=== PATIENT | female | born 1955 | race Caucasian/White ===

== ENCOUNTER 2016-11-18 11:51 | Inpatient (IN) | payer OTHER, MEDICAID ==
[~2016-11-18] VITALS: Ht 170.2 cm; Wt 103.2 kg
[2016-11-18] VITALS (9 sets, daily range): BP systolic 134–168; BP diastolic 80–106; PULSE 100–121; RESP 12–24; O2SAT 95–97
[~2016-11-18 11:51] MED LIST: ACYC400T2 PO; ALBU8.5H4 IH; AMLO5TAB2 PO; ASPI-973 PO; CLIN30GE2 TP; CLON1TAB PO; CLOP75TA3 PO; CYCL10TA9 PO; ERGO500029 PO; FLUT250D2 IH; GABA400C PO; LORA10TA73 PO; MAGN400T4 PO; MONT10TA20 PO; MULT-56 PO; NIAC-9 PO; O2; ONDA8TAB7 PO; OXYC30TA80 PO; PANT40TA2 PO; POLY17PO6 PO
--- NOTE | 2016-11-18 12:01 | ED.REPORT ---
HPI-Chest Pain 40 and Over Date of Service Nov 18, 2016 ED Provider: The patient is a 61 year old female with history of a previous stroke, coronary artery disease, asthma, and chronic pain, who presents to the emergency department complaining of left-sided chest pain that began this morning. The patient reports that she vomited 5 days ago and she thinks she aspirated. She has since experienced shortness of breath, cough and fever (101.5). She is unsure if her current symptoms are similar to when she previously had a heart attack. Nursing Notes Stated Complaint: SOB/CHEST PAIN Nursing Notes Reviewed: Yes Allergies: Coded Allergies: amitriptyline (Verified Allergy, Severe, seizure, 11/18/16) NSAIDS (Non-Steroidal Anti-Inflamma (Verified Allergy, Intermediate, RASH- TOLERATES INDOMETHACIN, 11/18/16) TAPE (Verified Allergy, Mild, rash, 11/18/16) Penicillins (Verified Allergy, Unknown, 11/18/16) Jokcnis-Zwa-Bpe Reductase Inhibitor (Verified Allergy, Unknown, 11/18/16) LEG CRAMPS, FLU LIKE SYMPTOM Sulfa (Sulfonamide Antibiotics) (Verified Allergy, Unknown, 11/18/16) celecoxib (Verified Allergy, Unknown, 11/18/16) codeine (Verified Allergy, Unknown, 02/13/15) Cramping and vomiting. duloxetine (Verified Allergy, Unknown, 11/18/16) erythromycin base (Verified Allergy, Unknown, 11/18/16) fenofibrate (Verified Allergy, Unknown, 11/18/16) fentanyl (Verified Allergy, Unknown, 11/18/16) iodine (Verified Allergy, Unknown, 11/18/16) lactose (Verified Allergy, Unknown, 11/18/16) morphine (Verified Allergy, Unknown, 11/18/16) Nauseous pregabalin (Verified Allergy, Unknown, 11/18/16) topiramate (Verified Allergy, Unknown, 11/18/16) Scheduled Acyclovir (Acyclovir) 400 Mg Tablet 400 MG PO TID Allopurinol (Allopurinol) 300 Mg Tablet 300 MG PO DAILY Amlodipine (Amlodipine) 5 Mg Tablet 2.5 MG PO DAILY Aspirin (Aspirin) 81 Mg Tablet.dr 81 MG PO DAILY Beclomethasone Dipropionate (Qvar) 8.7 Gm Aer.w.adap 2 PUFF INHALATION BID Bumetanide (Bumetanide) 1 Mg Tablet 1 MG PO BID Cholecalciferol (Vitamin D3) (Vitamin D3) 50,000 Unit Capsule 50,000 UNIT PO WEEKLY Clonazepam (Klonopin) 1 Mg Tablet 1 MG PO BID Clopidogrel Bisulfate (Plavix) 75 Mg Tablet 75 MG PO AM Cyclobenzaprine (Cyclobenzaprine) 10 Mg Tablet 20 MG PO HS Cyclobenzaprine (Cyclobenzaprine) 10 Mg Tablet 10 MG PO QAM Fluticasone Propionate (Fluticasone Propionate Nasal) 16 Gm Nelson.susp 2 SPRAY NS BID Gabapentin (Neurontin) 400 Mg Capsule 800 TAB PO AM Gabapentin (Neurontin) 400 Mg Capsule 1,600 TAB PO HS Loratadine (Claritin) 10 Mg Capsule 10 MG PO QAM Magnesium Oxide (Magnesium Oxide) 400 Mg Tablet 400 MG PO BID Montelukast (Singulair) 10 Mg Tablet 10 MG PO HS Multivitamin (Multivitamins) 1 Each Capsule 1 EACH PO DAILY Pantoprazole DR (Protonix) 40 Mg Tablet.dr 40 MG PO BID Potassium Chloride ER (Klor-Con M20) 20 Meq Tablet 20 MEQ PO BID Sucralfate (Sucralfate) 1 Gm Tablet 1 GM PO QID Scheduled PRN Albuterol HFA (Proair HFA) 8.5 Gm Hfa.aer.ad 2 PUFFS INHALATION Q4H PRN PRN For Shortness of Breath Nabumetone (Nabumetone) 500 Mg Tablet 500 MG PO BID PRN PRN For Pain Nitroglycerin SL (Nitrostat) 0.4 Mg Tab.subl 0.4 MG SL Q5MIN PRN PRN For Chest Pain Ondansetron (Zofran) 8 Mg Tablet 8 MG PO TID PRN PRN For Nausea Polyethylene Glycol 3350 (Miralax) 17 Gm Powd.pack 17 GM PO DAILY PRN PRN For Constipation oxyCODONE (oxyCODONE) 30 Mg Tablet 1-2 TAB PO Q4H PRN PRN For Pain General Time Seen by MD: 12:00 Chief Complaint Chest pain Hx Obtained From: Patient Arrived By: Wheelchair Sudden in Onset?: Yes Onset Occurred: 1 - 4 hours ago Symptom Duration: Since onset Location: : Chest left Quality: Painful Severity: Current: Moderate Severity: Maximum: Severe Recent Healthcare: No recent hospitalization Similar Sx Previous: No Past Medical History Past Medical History Notes: PCP: Dr. Espinal Past Medical History Chronic pain from arthritis with chronic opiate use, oxycodone 30 mg 240 per month Hx of C. Diff Reports: Asthma, Coronary artery disease, Stroke Past Surgical History Laparotomy for endometrioma, left knee arthroscopy, hiatal hernia surgery, neck surgery X4, thoracic outlet, patent foramen ovale intraluminal closure Reports: Appendectomy, Hysterectomy Reports: Tubal ligation Family History Reports: Coronary artery disease Reports: Cancer Smoking History Former Smoker Social History Alcohol Use: Denies alcohol use Drug Use: THC Other Social History: Local resident Ambulatory Status Independent Review of Systems Constitutional: Reports: Fever Respiratory: Reports: Non-productive cough, Shortness of breath Cardiovascular: Reports: Chest pain GI: Reports: Nausea, Vomiting Complete sys rev & neg: except as marked. Physical Exam Initial Vital Signs Vital Signs (First) Date Time Temp Pulse Resp B/P Pulse Ox O2 Delivery O2 Flow Rate FiO2 11/18/16 12:23 36.7 121 16 148/93 96 Room Air 11/18/16 13:39 3 Initial VS: Reviewed Head / Eyes: Atraumatic, Normocephalic, PERRL ENT: Mucous membranes moist, Conjunctiva normal, No scleral icterus Neck: Supple, Non-tender, Full range of motion Lymphatic: No lymphadenopathy Extremities: Vascular intact, Neuro intact, No swelling, No tenderness Skin: Warm, Dry, No cyanosis Neurologic: Alert, Oriented, Nonfocal Psychiatric: Mood/affect normal, Behavior normal, Normal thought content General/Constitutional: Awake, Alert Distress / Hydration: Positive: Distress moderate Appearance / Presentation: Positive: In pain Respiratory / Chest: Atraumatic, Breath sounds NL, Breath sounds = bilat, No respiratory distress, No rales, No rhonchi, No wheezing, No stridor, No chest tenderness Cardiovascular: Regular rhythm, Heart sounds NL, No rubs Heart Rate / Rhythm: Positive: Tachycardia Abdomen: Atraumatic, Soft, Non-tender, McBurney's non-tender, No guarding, No rebound, BS normoactive, No distention, No hernia, No palpable mass Interpretation & Diagnostics Lab Results Interpretation Result Diagram: 11/18/16 1159 11/18/16 1159 Test 11/18/16 11:59 White Blood Count 18.6th/mm3 (3.8-10.1) Red Blood Count 4.38mil/mm3 (3.90-5.20) Hemoglobin 13.8g/dL (12.0-15.6) Hematocrit 42.3% (35.0-46.0) Mean Corpuscular Volume 96.6fL (81-100) Mean Corpuscular Hemoglobin 31.5pg (27.0-35.0) Mean Corpuscular Hemoglobin Concent 32.6% (32.0-37.0) Red Cell Distribution Width 13.7% (12.3-15.4) Platelet Count 301bil/L (150-400) Neutrophils (%) (Auto) 93.6% (40-74) Lymphocytes (%) (Auto) 4.8% (14-46) Monocytes (%) (Auto) 1.2% (4-12) Eosinophils (%) (Auto) 0% (0-5) Basophils (%) (Auto) 0.1% (0-3) Prothrombin Time 11.2sec (8.1-12.5) Prothromb Time International Ratio 1.05ratio Activated Partial Thromboplast Time 27.5sec (22.8-33.0) D-Dimer 1.43mg/L FEU (<0.50) Sodium Level 139mEq/L (134-144) Potassium Level 3.5mEq/L (3.5-5.2) Chloride Level 92mEq/L (97-108) Carbon Dioxide Level 24mmol/L (18-29) Blood Urea Nitrogen 15mg/dL (8-27) Creatinine 0.95mg/dL (0.57-1.00) Estimat Glomerular Filtration Rate 86mL/min (>59) Glucose Level 215mg/dL (60-99) Lactic Acid Level 5.1mmol/L (0.4-2.0) Calcium Level 10.0mg/dL (8.5-10.1) Phosphorus Level 1.7mg/dL (2.5-4.9) Magnesium Level 1.9mg/dL (1.6-2.6) Total Bilirubin 0.7mg/dL (0.0-1.2) Aspartate Amino Transf (AST/SGOT) 29U/L (0-50) Alanine Aminotransferase (ALT/SGPT) 19U/L (0-32) Alkaline Phosphatase 123U/L (25-165) Troponin T 0.010ug/L (0.0-0.011) Total Protein 7.9g/dL (6.4-8.4) Albumin 4.3g/dL (3.4-5.0) Procalcitonin 3.73ng/mL (0.00-0.08) ECG Interpretation ECG Interpretation: Sinus tachycardia with a rate of 122 RBBB Similar to previous EKG taken on 02/2017 Time: 12:04 Interpreted by: ED physician X-Ray Chest Interpretation Chest Xray Interpretation: IMPRESSION: Bilateral reticular-nodular infiltrates suggest atypical pneumonia or pulmonary edema. Dictated by: Lexa Turcios M.D. on 11/18/2016 at 12:31 Interpretation / Wet Read by: Interpret - Radiologist CT Chest Interpretation IMPRESSION: 1. No evidence of pulmonary embolism. 2. Patchy right pulmonary air space disease/groundglass opacity is most suggestive of pneumonia. Aspiration or atypical edema may also have this appearance. 3. Lingular nodular structure probably is related to scarring and is located at the location where scarring/atelectais was noted on the prior study. However, on the current study this structure has a more nodular appearance. Subsequently, [address] of the chest is recommended. 4. Mild prominence of the esophageal wall may be related to chronic reflux esophagitis. Please correlate clinically. There is a questionable small hiatal hernia. Dictated by: Marcus Morfin M.D. on 11/18/2016 at 14:13 Study type: CT pulm angiogram Interpretation / Wet Read by: Interpret - Radiologist Re-Eval/Medical Decision Med Decision/Clinical Course Severe sepsis without hypotension due to aspiration pneumonia. Patient will be admitted. Source of Hx: Old records Time of Eval: 13:19 Re-Evaluation/Progress Note: Rechecked the patient. Discussed x-ray results. She was last admitted to the hospital about 2 years ago. Time of Eval: 14:09 Re-Evaluation/Progress Note: The patient believes she will be able to lay flat for the CT. Time of Eval: 14:15 Re-Evaluation/Progress Note: The pt is aware of plan for admission. 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: Will see patient, Agrees with eval, Agrees with plan, Accepts admit Counseled Regarding: Diagnosis, Lab results, Need for admission Discharge & Departure Primary Impression: Pneumonia Pneumonia type: aspiration pneumonia Aspiration pneumonia type: unspecified Laterality: bilateral Lung location: lower lobe of lung Qualified Code: J69.0 - Pneumonitis due to inhalation of food and vomit Additional Impression: Sepsis Sepsis type: sepsis due to unspecified organism Qualified Code: A41.9 - Sepsis, unspecified organism Disposition: ADMITTED TO HOSPITAL Discharge Condition All VS Reviewed: Yes Condition: Stable Referrals: Bolivar Quiñonez (PCP) Scribe Attestation Portions of this note were transcribed by Ramya Dang. I, Dr. Lott personally performed the history, physical exam and medical decision-making; I reviewed and confirmed the accuracy of the information in the transcribed note. Signed by: Uriel Cheatham, 11/18/2016 at 1532. copies to: Bolivar Quiñonez Timothy S DO Nov 18, 2016 12:01 Ramya Dang Nov 18, 2016 12:06
[2016-11-18] MEDS ORDERED: 0.9% Sodium Chloride 1,000 ML IV ONE ×2 (12:05→13:20)
[2016-11-18 12:28] LABS: BASOPHILS % (AUTO) 0.1 % (0-3); EOSINOPHILS % (AUTO) 0 % (0-5); MONOCYTES % (AUTO) 1.2 % (4-12); Mean Corpuscular Hemoglobin 31.5 pg (27.0-35.0); Mean Corpuscular Volume 96.6 fL (81-100); NEUTROPHILS % (AUTO) 93.6 % (40-74); Platelet Count 301 bil/L (150-400)
--- NOTE | 2016-11-18 12:34 | DRSVH ---
PROCEDURE: X-RAY CHEST ONE VIEW, PORTABLE ([id number]) INDICATIONS: CHEST PAIN TECHNIQUE: One view of the chest was acquired. COMPARISON: [facility], CR, XR CHEST 2VW, 09/01/2016, 14:39. [facility], CR , XR CHEST 1VW (PORTABLE), 02/17/2016, 19:51. FINDINGS: Surgical changes and devices: Surgical clips projecting to the right apex. Lungs and pleura: There are bilateral reticular-nodular infiltrates. No pleural effusions or pneumot horax. Mediastinum: Mediastinal contours appear normal. Heart size is normal. Bones and chest wall: No suspicious bony lesions. Overlying soft tissues appear unremarkable. IMPRESSION: Bilateral reticular-nodular infiltrates suggest atypical pneumonia or pulmonary edema. Dictated by: Lexa Turcios M.D. on 11/18/2016 at 12:31 Approved by: Lexa Turcios M.D. on 11/18/2016 at 12:32
[2016-11-18] MEDS: Ondansetron 2 mg/mL 2 mL Inj IVPUSH PRN ×2 (12:49→13:17)
[2016-11-18] MEDS: HYDROmorphone 0.5 mg/0.5 mL iSecure Syringe IVPUSH PRN ×4 (12:49→17:10)
[2016-11-18] MEDS ORDERED: predniSONE 10 mg Tablet PO ONE (12:55)
[2016-11-18] MEDS ORDERED: predniSONE 20 mg Tablet PO ONE (12:55)
[2016-11-18] MEDS ORDERED: diphenhydrAMINE 25 mg Capsule PO ONE (12:55)
[2016-11-18 12:59] LABS: TROPONIN T 0.01 ug/L (0.0-0.011)
[2016-11-18 13:11] LABS: Magnesium 1.9 mg/dL (1.6-2.6)
[2016-11-18 13:15] LABS: INR 1.05 ratio
[2016-11-18] MEDS ORDERED: 0.9% Sodium Chloride 500 ML IV ONE (13:20)
[2016-11-18] MEDS ORDERED: Doxycycline Inj 100 MG in Dextrose 5% Minibag Plus 100 ML IV ONE (13:40)
[2016-11-18] MEDS ORDERED: cefTRIAXone Inj 2,000 MG in Dextrose 5% Minibag Plus 50 ML IV ONE (13:40)
[2016-11-18] MEDS ORDERED: Clindamycin Inj 600 MG in IV Premix 1 EACH IV ONE (13:40)
[2016-11-18] MEDS ORDERED: 0.9% Sodium Chloride 1,000 ML IV SCH ×2 (14:19→14:30)
[2016-11-18] MEDS ORDERED: Ondansetron 2 mg/mL 2 mL Inj IVPUSH PRN (14:20)
[2016-11-18] MEDS ORDERED: ALLO300T2 PO (14:33)
[2016-11-18] MEDS ORDERED: ZOF8 PO (14:33)
[2016-11-18] MEDS ORDERED: POLY17PO6 PO (14:33)
[2016-11-18] MEDS ORDERED: CYCL10TA9 PO (14:33)
[2016-11-18] MEDS ORDERED: ALBU8.5H2 INHALATION (14:35)
[2016-11-18] MEDS ORDERED: MULT1CAP33 PO (14:35)
[2016-11-18] MEDS ORDERED: CHOL500050 PO (14:35)
[2016-11-18] MEDS ORDERED: LORA10CA PO (14:35)
[2016-11-18] MEDS ORDERED: NABU500T PO (14:41)
[2016-11-18] MEDS ORDERED: BUME1TAB4 PO (14:41)
[2016-11-18] MEDS ORDERED: SUCR1TAB PO (14:41)
[2016-11-18] MEDS ORDERED: BECL8.7A6 INHALATION (14:41)
[2016-11-18] MEDS ORDERED: NITR0.4T SL (14:41)
[2016-11-18] MEDS ORDERED: POTA20TA7 PO (14:41)
[2016-11-18] MEDS ORDERED: FLUT16SP NS (14:41)
[2016-11-18 14:51] LABS: Phosphorus 1.7 mg/dL (2.5-4.9)
[2016-11-18] MEDS ORDERED: Polyethylene Glycol (PEG) 17 Gm Powder PO PRN (15:05)
[2016-11-18] MEDS ORDERED: Potassium Phos (mMol) Inj 15 MMOL in Dextrose 5% 250 ML IV ONE (15:10)
--- NOTE | 2016-11-18 15:21 | DRSVH ---
PROCEDURE: CT ANGIO CHEST PULMONARY EMBOLISM ([id number]) INDICATIONS: dyspnea, tachycardia TECHNIQUE: After the administration of intravenous contrast, 2 mm thick sections acquired from the pulmonary api niyah to the posterior costophrenic angles. 3-dimensional maximum intensity projection (MIP) coronal a nd sagittal reformats were then acquired through the thorax. For radiation dose reduction, the follo wing was used: automated exposure control, adjustment of mA and/or kV according to patient size. COMPARISON: [facility], CT, CHEST ANGIO-PE, 01/24/2014, 20:00. FINDINGS: Image quality: Diagnostic. Pulmonary arteries: Pulmonary arteries are normal in size, and demonstrate no intraluminal filling d efects to suggest central pulmonary embolism. Lungs and pleura: There is patchy groundglass airspace disease identified within the right lung and t o a lesser degree within the left infrahilar region. There is no lobar consolidation, effusion, or p neumothorax. Mild respiratory motion artifact does limit evaluation of the lungs for subtle pulmonar y nodules. Within the lingula, there is an 11 mm nodular structure identified, which may represent a telectasis (image 94, series 4). On the previous examination, there was mild consolidation within th is region, which probably represents the same process and most likely represents scarring. There is no lung mass. Mediastinum: Heart size is normal, without pericardial effusion. No mediastinal or hilar adenopathy . Thoracic aorta is normal in caliber and enhancement. There is mild aortic atherosclerosis. Mild p rominence of the wall of the esophagus is present within the mediastinum. There is may be a small hi atal hernia. Postoperative changes within this region are evident at the gastroesophageal junction. Bones and chest wall: No suspicious bony lesions. Ribs and thoracic spine appear intact throughout. Moderate multilevel degenerative changes of the thoracic spine are present. There are also moderat e degenerative changes of the bilateral shoulders. Thyroid gland is not enlarged or adequately evalu ated. No axillary or supraclavicular adenopathy. Abdomen: Visualized upper abdominal solid organs appear normal in the early arterial phase of enhanc ement. IMPRESSION: 1. No evidence of pulmonary embolism. 2. Patchy right pulmonary air space disease/groundglass opacity is most suggestive of pneumonia. As piration or atypical edema may also have this appearance. 3. Lingular nodular structure probably is related to scarring and is located at the location where s carring/atelectais was noted on the prior study. However, on the current study this structure has a more nodular appearance. Subsequently, [address] of the chest is recommended. 4. Mild prominence of the esophageal wall may be related to chronic reflux esophagitis. Please abdullahi elate clinically. There is a questionable small hiatal hernia. Dictated by: Marcus Morfin M.D. on 11/18/2016 at 14:13 Approved by: Marcus Morfin M.D. on 11/18/2016 at 14:19
[2016-11-18] MEDS: 0.9% Sodium Chloride 1,000 ML IV SCH ×2 (16:51→23:10)
[2016-11-18] MEDS: Sodium Chloride LOK Flush 10 mL Syringe IVFLUSH SCH (16:51)
--- NOTE | 2016-11-18 16:54 | NUR ---
Admit Patient A&Ox3, talking animatedly on phone. States she is severely SOB, SPO2 in the high 90s on 3L, RR 16. C/o "pneumonia and kidney pain" 05/16. Hypertensive systolic BP 160-170s. paged. NO new orders at this time. Patient in bed, private caregiver at bedside. Call light within reach.
[2016-11-18] MEDS: Sucralfate 1,000 mg Tablet PO SCH ×2 (17:07→20:12)
[2016-11-18] MEDS: Pantoprazole 40 mg ER24 Tablet PO SCH (17:08)
[2016-11-18] MEDS ORDERED: Vancomycin Inj 1,000 MG in IV Premix 1 EACH IV ONE (18:00)
[2016-11-18] MEDS ORDERED: Vancomycin Inj 2,000 MG in 0.9% Sodium Chloride 500 ML IV ONE (18:30)
[2016-11-18] MEDS ORDERED: Albuterol 2.5 mg/3 mL Inhalation Solution NEB PRN (20:00)
[2016-11-18] MEDS: Acyclovir 400 mg Tablet PO SCH (20:12)
[2016-11-18] MEDS: Fluticasone 0.05% 15 Spray/2 Gm 16 Gm Nasal Spray NASAL SCH (20:13)
[2016-11-18] MEDS: Fluticasone 100 mCg Inhaler INHALATION SCH (20:14)
[2016-11-18] MEDS: Albuterol-Ipratropium 3 mL Inhalation Solution NEB SCH (21:05)
[2016-11-18] MEDS ORDERED: Potassium Chloride 20 mEq SR Tablet PO ONE (21:25)
[2016-11-18] MEDS: Aztreonam Inj 500 MG in Dextrose 5% 50 ML IV SCH (23:45)
[2016-11-19] VITALS (10 sets, daily range): BP systolic 103–152; BP diastolic 65–96; PULSE 85–111; RESP 16–20; O2SAT 93–99
[2016-11-19] MEDS: Sodium Chloride LOK Flush 10 mL Syringe IVFLUSH SCH ×3 (00:30→16:30)
--- NOTE | 2016-11-19 01:16 | PCM.HPMED ---
Subjective Date of Service Nov 18, 2016 Primary Provider: Admitting Physician: Bell Zaldivar MD Primary Care Physician: Alexandre Espinal MD Attending Physician: Bell Zaldivar MD History of Present Illness: cc: SOB HISTORY was OBTAINED FROM PATIENT / MEDITECH NOTES History of present illness 61-year-old female, w/ RA/acyclovir while immunosuppressed, w/ nocturnal home O2 2L/CPAP dependent, presented to ER due to malaise/SOB since Monday morning associated w/ "vomiting" phelgm - green, productive cough, sore throat, presents to ER with fevers 101.5. This morning, pleuritic pain started, located , lower ribs anterior and posterior bilateral. This past year multiple rounds of doxycycline and multiple negative sputum cx, last doxycyline course per her pulmnologist x 10 days less than 1 month ago. Prior quinolone have not helped. typically when she is off doxycycline, symptoms recur. She indicates that this is the 1st time being diagnosed w/ pneumonia. Her cloth presser had ordered outpt CTPE, not yet performed, possibly neighbors are sick contacts. In the ER. Heart rate 118 - 121, afebrile, 148/93, 3 L nasal cannula s/p Doxycyclin clindamycin Rocephin normal saline prednisone ( for iodine allergy) and Benadryl Dilaudid and Zofran, CT-PE negative. Review of Systems - none of the following - wt change/ RUEDA / lightheaded / dizziness / acid reflux / n/v/diarrhea / bleeding/bruising / leg swelling / change in voiding / yeast infections / rash ambulates PMHx Rheumatoid arthritis, immunosuppressant, acyclovir for herpetic breakout on immunosuppressant Chronic pain from arthritis with chronic opiate use, oxycodone 30 mg 240 per month Hx of C. Diff Asthma, Coronary artery disease, Stroke Laparotomy for endometrioma, left knee arthroscopy, hiatal hernia surgery, neck surgery X4, thoracic outlet, patent foramen ovale intraluminal closure Appendectomy, Hysterectomy Tubal ligation Family History Coronary artery disease Cancer Smoking History Former Smoker Drug Use: THC Coded Allergies: amitriptyline (Verified Allergy, Severe, seizure, 11/18/16) NSAIDS (Non-Steroidal Anti-Inflamma (Verified Allergy, Intermediate, RASH- TOLERATES INDOMETHACIN, 11/18/16) TAPE (Verified Allergy, Mild, rash, 11/18/16) Penicillins (Verified Allergy, Unknown, 11/18/16) Swzogbe-Ofx-Vui Reductase Inhibitor (Verified Allergy, Unknown, 11/18/16) LEG CRAMPS, FLU LIKE SYMPTOM Sulfa (Sulfonamide Antibiotics) (Verified Allergy, Unknown, 11/18/16) celecoxib (Verified Allergy, Unknown, 11/18/16) codeine (Verified Allergy, Unknown, 02/13/15) Cramping and vomiting. duloxetine (Verified Allergy, Unknown, 11/18/16) erythromycin base (Verified Allergy, Unknown, 11/18/16) fenofibrate (Verified Allergy, Unknown, 11/18/16) fentanyl (Verified Allergy, Unknown, 11/18/16) iodine (Verified Allergy, Unknown, 11/18/16) lactose (Verified Allergy, Unknown, 11/18/16) morphine (Verified Allergy, Unknown, 11/18/16) Nauseous pregabalin (Verified Allergy, Unknown, 11/18/16) topiramate (Verified Allergy, Unknown, 11/18/16) medications ([O2]) 2 L NA Night Acyclovir (Acyclovir) 400 Mg Tablet 400 MG PO TID Amlodipine (Amlodipine) 5 Mg Tablet 5 MG PO DAILY Aspirin (Aspirin) 81 Mg Tablet.dr 81 MG PO DAILY Clopidogrel Bisulfate (Plavix) 75 Mg Tablet 75 MG PO AM Ergocalciferol (Vitamin D2) (Vitamin D2) 50,000 Unit Capsule 50,000 UNIT PO QW takes on Monday Fluticasone Propionate (Flovent Diskus) 250 Mcg Disk.w.dev 1 PUFF IH BID Gabapentin (Neurontin) 400 Mg Capsule 2 TAB PO AM Gabapentin (Neurontin) 400 Mg Capsule 4 TAB PO PM Loratadine (Claritin) 10 Mg Tablet 10 MG PO AM Magnesium Oxide (Magnesium Oxide) 400 Mg Tablet 400 MG PO HS Montelukast (Singulair) 10 Mg Tablet 10 MG PO HS Multivitamin (Daily Vitamin) 1 Each Tablet 1 EACH PO DAILY Niacin ER (Niacin ER) 500 Mg Tab.er.24h 500 MG PO DAILY Ondansetron ODT (Zofran ODT) 8 Mg Tab.rapdis 8 MG PO PRN Pantoprazole DR (Protonix) 40 Mg Tablet.dr 40 MG PO BID Polyethylene Glycol 3350 (Miralax) 17 Gm Powd.pack 17 GM PO TID Scheduled PRN Albuterol HFA (Albuterol HFA) 8.5 Gm Hfa.aer.ad 2 PUFF IH Q4-6H PRN PRN For Wheezing Clindamycin Phosphate (Clindamycin Phosphate Gel) 30 Gm Gel..gram. 1 APPLIC TP BID PRN PRN rash Clonazepam (Klonopin) 1 Mg Tablet 2 MG PO HS PRN PRN For Anxiety Cyclobenzaprine (Cyclobenzaprine) 10 Mg Tablet 20 MG PO HS PRN PRN For Spasm oxyCODONE (oxyCODONE) 30 Mg Tablet 1-2 TAB PO Q6H PRN PRN For Pain Allergies Coded Allergies: amitriptyline (Verified Allergy, Severe, seizure, 11/18/16) NSAIDS (Non-Steroidal Anti-Inflamma (Verified Allergy, Intermediate, RASH- TOLERATES INDOMETHACIN, 11/18/16) TAPE (Verified Allergy, Mild, rash, 11/18/16) Penicillins (Verified Allergy, Unknown, 11/18/16) Dgrlbql-Zoi-Xjt Reductase Inhibitor (Verified Allergy, Unknown, 11/18/16) LEG CRAMPS, FLU LIKE SYMPTOM Sulfa (Sulfonamide Antibiotics) (Verified Allergy, Unknown, 11/18/16) celecoxib (Verified Allergy, Unknown, 11/18/16) codeine (Verified Allergy, Unknown, 02/13/15) Cramping and vomiting. duloxetine (Verified Allergy, Unknown, 11/18/16) erythromycin base (Verified Allergy, Unknown, 11/18/16) fenofibrate (Verified Allergy, Unknown, 11/18/16) fentanyl (Verified Allergy, Unknown, 11/18/16) iodine (Verified Allergy, Unknown, 11/18/16) lactose (Verified Allergy, Unknown, 11/18/16) morphine (Verified Allergy, Unknown, 11/18/16) Nauseous pregabalin (Verified Allergy, Unknown, 11/18/16) topiramate (Verified Allergy, Unknown, 11/18/16) PMH Social History Hx Alcohol Use: No Hx Substance Use: No Hx Tobacco Use: No Smoking Status: Former Smoker Exam Vital Signs Vital Sign - Last Date Time Temp Pulse Resp B/P Pulse Ox O2 Delivery O2 Flow Rate FiO2 11/18/16 13:39 118 12 141/80 96 Nasal Cannula 3 4/14/17 12:23 36.7 Lab and Diagnostics Labs Exam on admission 3L O2 NAD A and O x 3 mood affect WNL NC/AT no icterus no injected eyes EOMI PERRL /no pharyngeal lesions/ no oral lesions / hearing intact Supple neck equal chest rise / no accessory muscle use / speaks in full sentences / soft bilateral crackles, diminished left greater than right RRR S1 S2 / no mrg / 2+ radial pulses Soft nt nd + BS no hepatosplenomegaly No edema no cyanosis no ecchymosis of lower extremities No rash / no jaundice PHILIP symmetrical facies WBC 18.6 left shift lactic acid 5.1 Magnesium 1.9 LFT normal D-dimer 1.43 INR PTT normal pending sputum cx, strep pna Imaging PROCEDURE: X-RAY CHEST ONE VIEW, PORTABLE ([id number]) INDICATIONS: CHEST PAIN TECHNIQUE: One view of the chest was acquired. COMPARISON: [facility], CR, XR CHEST 2VW, 09/01/2016, 14:39. [facility], CR, XR CHEST 1VW (PORTABLE), 02/17/2016, 19:51. FINDINGS: Surgical changes and devices: Surgical clips projecting to the right apex. Lungs and pleura: There are bilateral reticular-nodular infiltrates. No pleural effusions or pneumothorax. Mediastinum: Mediastinal contours appear normal. Heart size is normal. Bones and chest wall: No suspicious bony lesions. Overlying soft tissues appear unremarkable. IMPRESSION: Bilateral reticular-nodular infiltrates suggest atypical pneumonia or pulmonary edema. Date of Service: 11/18/16 1223 PROCEDURE: CT ANGIO CHEST PULMONARY EMBOLISM ([id number]) INDICATIONS: dyspnea, tachycardia TECHNIQUE: After the administration of intravenous contrast, 2 mm thick sections acquired from the pulmonary apices to the posterior costophrenic angles. 3-dimensional maximum intensity projection (MIP) coronal and sagittal reformats were then acquired through the thorax. For radiation dose reduction, the following was used: automated exposure control, adjustment of mA and/or kV according to patient size. COMPARISON: [facility], CT, CHEST ANGIO-PE, 01/24/2014, 20:00. FINDINGS: Image quality: Diagnostic. Pulmonary arteries: Pulmonary arteries are normal in size, and demonstrate no intraluminal filling defects to suggest central pulmonary embolism. Lungs and pleura: There is patchy groundglass airspace disease identified within the right lung and to a lesser degree within the left infrahilar region. There is no lobar consolidation, effusion, or pneumothorax. Mild respiratory motion artifact does limit evaluation of the lungs for subtle pulmonary nodules. Within the lingula, there is an 11 mm nodular structure identified, which may represent atelectasis (image 94, series 4). On the previous examination, there was mild consolidation within this region, which probably represents the same process and most likely represents scarring. There is no lung mass. Mediastinum: Heart size is normal, without pericardial effusion. No mediastinal or hilar adenopathy. Thoracic aorta is normal in caliber and enhancement. There is mild aortic atherosclerosis. Mild prominence of the wall of the esophagus is present within the mediastinum. There is may be a small hiatal hernia. Postoperative changes within this region are evident at the gastroesophageal junction. Bones and chest wall: No suspicious bony lesions. Ribs and thoracic spine appear intact throughout. Moderate multilevel degenerative changes of the thoracic spine are present. There are also moderate degenerative changes of the bilateral shoulders. Thyroid gland is not enlarged or adequately evaluated. No axillary or supraclavicular adenopathy. Abdomen: Visualized upper abdominal solid organs appear normal in the early arterial phase of enhancement. IMPRESSION: 1. No evidence of pulmonary embolism. 2. Patchy right pulmonary air space disease/groundglass opacity is most suggestive of pneumonia. Aspiration or atypical edema may also have this appearance. 3. Lingular nodular structure probably is related to scarring and is located at the location where scarring/atelectais was noted on the prior study. However , on the current study this structure has a more nodular appearance. Subsequently, [address] of the chest is recommended. 4. Mild prominence of the esophageal wall may be related to chronic reflux esophagitis. Please correlate clinically. There is a questionable small hiatal hernia. Result Diagram: 11/18/16 1159 11/18/16 1159 Assessment & Plan Active issues and reason for admission acute on chronic hypoxia due to bilateral pna, treated as HCAP, sepsis. --anaphylactic w/ pcn --oupt doxycycline s/p 9th course within 1 year, levaquin aztreonam vanco for now, s/p rocephine/doxycycline in ER. --f;/u w her outpt pulmnologist --duonebs / wean O2 back to home nocturanl 2LNC when tolerates --cpap at night --high threshhold to dc abx due to prior c diff. Chronic issues known prior to admission, present on admission Rheumatoid arthritis, immunosuppressant, acyclovir for herpetic breakout on immunosuppressant Chronic pain from arthritis with chronic opiate use, oxycodone 30 mg 240 Asthma, Coronary artery disease, Stroke Laparotomy for endometrioma, left knee arthroscopy, hiatal hernia surgery, neck surgery X4, thoracic outlet, patent foramen ovale intraluminal closure CHF Diet cardiac DVT prophylaxis lovenox Code full Disposition inpt Assessment and plan were discussed with patient Bell Zaldivar MD Nov 18, 2016 14:28
[2016-11-19] MEDS: Aztreonam Inj 500 MG in Dextrose 5% 50 ML IV SCH ×3 (02:24→17:47)
[2016-11-19] MEDS: Albuterol-Ipratropium 3 mL Inhalation Solution NEB SCH ×4 (02:30→19:42)
[2016-11-19] MEDS: levoFLOXacin Inj 500 MG in IV Premix 1 EACH IV SCH ×2 (03:45→18:30)
[2016-11-19 04:04] LABS: BASOPHILS % (AUTO) 0 % (0-3); EOSINOPHILS % (AUTO) 0 % (0-5); MONOCYTES % (AUTO) 6.4 % (4-12); Mean Corpuscular Hemoglobin 31.4 pg (27.0-35.0); Mean Corpuscular Volume 97.6 fL (81-100); NEUTROPHILS % (AUTO) 77.9 % (40-74); Platelet Count 279 bil/L (150-400)
[2016-11-19] MEDS ORDERED: Doxycycline Inj 100 MG in Dextrose 5% Minibag Plus 100 ML IV SCH (05:00)
--- NOTE | 2016-11-19 05:55 | NUR ---
Pain/Respiratory Patient continues to complain of 8-9/10 pain in her back, neck, and chest. States "I want some of that D-- medicine. They said I could have that." Clarified with patient that she wants more IV dilauded. Patient reluctant to accept her regular PO medications. When nursing staff not in the room, patient noted to be talking and laughing with private caregiver and talking on the phone. Up to bedside commode with minimal difficulty. SpO2 remains in the mid to upper 90s on 2-3 L by nasal cannula. Patient unhappy with nasal cannula as it bothers her nose; switched to oxymask. Continue to monitor.
[2016-11-19] MEDS: 0.9% Sodium Chloride 1,000 ML IV SCH ×3 (07:10→23:10)
[2016-11-19] MEDS: Fluticasone 0.05% 15 Spray/2 Gm 16 Gm Nasal Spray NASAL SCH ×2 (08:03→20:31)
[2016-11-19] MEDS: Fluticasone 100 mCg Inhaler INHALATION SCH ×2 (08:03→20:31)
[2016-11-19] MEDS: Pantoprazole 40 mg ER24 Tablet PO SCH ×2 (08:05→17:47)
[2016-11-19] MEDS: Sucralfate 1,000 mg Tablet PO SCH ×4 (08:05→20:30)
[2016-11-19] MEDS: Acyclovir 400 mg Tablet PO SCH ×3 (08:05→20:30)
--- NOTE | 2016-11-19 08:27 | DRSVH ---
PROCEDURE: US VENOUS LEG DUPLEX BILATERAL INDICATIONS: both legs on and off swollen TECHNIQUE: Real-time imaging, as well as color and pulse Doppler interrogation, were performed of the deep veins of both legs from the inguinal ligament to the popliteal fossa. COMPARISON: None. FINDINGS: The deep veins are normally compressible, and free of intraluminal thrombus. Color and pu lse Doppler demonstrate normal phasic intravascular flow. There is normal augmentation response to d istal compression maneuver. IMPRESSION: No deep vein thrombosis of the bilateral lower extremities. Dictated by: Conchita Berman M.D. on 11/19/2016 at 8:25 Approved by: Conchita Berman M.D. on 11/19/2016 at 8:26
[2016-11-19] MEDS ORDERED: cefTRIAXone Inj 2,000 MG in Dextrose 5% Minibag Plus 50 ML IV SCH (08:30)
[2016-11-19] MEDS: Vancomycin Dose per Pharmacist XX SCH (08:30)
[2016-11-19 10:50] LABS: APPEARANCE,URINE CLEAR (CLEAR,HAZY); COLOR,URINE STRAW (YELLOW); OCCULT BLOOD,URINE NEGATIVE (NEGATIVE); UROBILINOGEN,URINE NORMAL (NORMAL)
--- NOTE | 2016-11-19 12:47 | NUR ---
Social Work- Brief Note Data: EMR reviewed. Pt is a 61 year old female admitted 11/18/16 for pneumonia, sepsis per H&P. Pt's insurance is [employer] and [facility] Medicaid. Pt has [facility] caregiving, 114 hours/month. THADDEUS faxed clinicals to [facility], pt is unsure who CM is. THADDEUS met with pt and son at bedside regarding discharge plan, SW role explained. Pt alert and oriented x3. Pt resides in [place] where she receives assistance from [employer] with housekeeping, shopping, chores. Pt states that she may be interested in Home Health, SW to follow up regarding this as pt's clinical course progresses. Pt has no DPOA, requested paperwork. SW to provide this. Pt to discharge home with caregiver or son to transport via POV. R/O home health. SW will continue to follow. Assessment: Pt who has [facility] assistance. Plan: Pt to discharge home with [facility] caregiver or son to transport via POV. R/O home health. SW will continue to follow. ANH Christian
[2016-11-19] MEDS ORDERED: HYDR200T5 PO (14:47)
[2016-11-19] MEDS: Vancomycin Inj 1,500 MG in 0.9% Sodium Chloride 500 ML IV SCH ×2 (14:49→23:27)
--- NOTE | 2016-11-19 16:36 | PCM.PNMED ---
Subjective Date of Service Nov 19, 2016 Subjective Pleasant, sick looking female laying in bed, very upset of her ongoing, unresolved respiratory sickness. She denies chest pain or shortness of breath at the moment. C/o generalized weakness and fatigue. Exam Vital Signs Vital Sign - Last Date Time Temp Pulse Resp B/P Pulse Ox O2 Delivery O2 Flow Rate FiO2 11/19/16 16:04 37.0 101 18 125/82 98 OxyMask 3.00 11/18/16 16:34 99 Intake and Output 11/18/16 11/18/16 11/19/16 Cumulative From/Thru 14:59 22:59 06:59 11/18/16 12:23 - 11/19/16 06:21 Intake Total 1000 ml 1350 ml 1121 ml 3471 ml Balance 1000 ml 1350 ml 1121 ml 3471 ml Intake Oral 400 ml 400 ml IV Total 1000 ml 1350 ml 721 ml 3071 ml # Voids 4 4 Exam General: Elderly, pleasant woman in no acute distress, well-developed, well- nourished, appropriately interactive HEENT: Normocephalic, atraumatic. Anicteric sclerae, moist conjunctivae, oropharynx free of erythema and cobble stoning with moist mucosa. Neck: Supple. No lymphadenopathy or thyromegaly. Cardiovascular: Regular rate and rhythm, with no murmurs, rubs, or gallops appreciated Pulmonary: Soft bilateral crackles, no wheezes, or rhonchi. Normal respiratory effort with no use of accessory muscles. Abdomen: Bowel tones present. Soft, nontender, nondistended. No hepatosplenomegaly or masses appreciated. Extremities: No clubbing, cyanosis, edema, or lymphadenopathy appreciated. Skin: Normal temperature, turgor, and texture; no rash, ulcers, or subcutaneous nodules appreciated. Neurological: Cranial nerves grossly intact. Psychiatric: Normal mood and affect. Alert and oriented to person, place, and time. Lab and Diagnostics Result Diagram: 11/19/1633411/19/16334 Microbiology Microbiology ADENOVIRUS RESPIRATORY PCR Final 11/19/16 Not Detected CORONOVIRUS 229E Final 11/19/16 Not Detected CORONOVIRUS HKU1 Final 11/19/16 Not Detected CORONOVIRUS NL63 Final 11/19/16 Not Detected CORONOVIRUS OC43 Final 11/19/161 Not Detected INFLUENZA A PCR Final 11/19/16-1040 Not Detected INFLUENZA B PCR Final 11/19/16 Not Detected METAPNEUMOVIRUS PCR Final 11/19/16-1040 Not Detected RHINOVIRUS OR ENTEROVIRUS PCR Final 11/19/16 Organism 1 RHINOVIRUS/ENTEROVIRUS RHINOVIRUS OR ENTEROVIRUS DETECTED TIME CALLED: 1025 DATE CALLED: 11/19/16 FLOOR/DOCTOR: TANA/TOSHA Byrd CALLED BY: VS PARAINFLUENZA 1 PCR Final 11/19/16-1040 Not Detected CONTINUED ON NEXT PAGE RUN DATE: 11/19/16 [facility] LIVE PAGE 2 RUN TIME: 1041 Specimen Inquiry PHYSICIAN Patient: JORDYN APARICIO [id number] (Continued) Specimen: [id number] Collected: 11/19/16 Received: 11/19/16 (Continued) Procedure Result Verified Site PARAINFLUENZA 2 PCR Final 11/19/16 Not Detected Microbiology (Continued) PARAINFLUENZA 3 PCR Final 11/19/16 Not Detected PARAINFLUENZA 4 PCR Final 11/19/16 Not Detected RESP SYNCYTIAL VIRUS PCR Final 11/19/16 Not Detected CHLAMDOPHILIA PNEUMONIAE PCR Final 11/19/16 Not Detected MYCOPLASMA PNEUMONIAE PCR Final 11/19/16 MYCO PNEUMONIAE PCR Not Detected Reference Interval Not Detected X-Rays, CTs and MRIs X-RAY CHEST IMPRESSION: Bilateral reticular-nodular infiltrates suggest atypical pneumonia or pulmonary edema. Dictated and approved by: Lexa Turcios M.D. on 11/18/2016 at 12:31 CT ANGIO CHEST PULMONARY EMBOLISM IMPRESSION: 1. No evidence of pulmonary embolism. 2. Patchy right pulmonary air space disease/groundglass opacity is most suggestive of pneumonia. Aspiration or atypical edema may also have this appearance. 3. Lingular nodular structure probably is related to scarring and is located at the location where scarring/atelectais was noted on the prior study. However , on the current study this structure has a more nodular appearance. Subsequently, [address] of the chest is recommended. 4. Mild prominence of the esophageal wall may be related to chronic reflux esophagitis. Please correlate clinically. There is a questionable small hiatal hernia. Dictated and approved by: Marcus Morfin M.D. on 11/18/2016 at 14:13 VENOUS LEG DUPLEX BILATERAL IMPRESSION: No deep vein thrombosis of the bilateral lower extremities. Dictated and approved by: Conchita Berman M.D. on 11/19/2016 at 8:25 Assessment & Plan Jordyn Chapa is a 61 year old female with COPD, oxygen dependent at home on 2L/CPAP, rheumatoid arthritis, coronary artery disease and stroke in 2007 presented to [facility] with malaise, dyspnea, productive cough and sore throat. Patient admitted for acute on chronic hypoxia due to viral pneumonia. 1. Acute on chronic hypoxia, present on admission. Active - Chest x-ray suggestive of pneumonia, treated as HCAP on admission with Vancomycin, Levofloxacin, Aztreonam. Will continue today but discontinue tomorrow if culture is negative and no evidence of infection - Duonebs / wean O2 back to home nocturnal 2LNC when tolerates -AccuNeb - CPAP at night - Patient's small package and bundle sorter clerk is Dr. Cortes, at [facility] 2. Viral pneumonia, present on admission. Active - Viral PCR positive for Rhinovirus/Enterovirus - Patient meets SIRS criteria with tachycardia 118 and white blood count of 18.6 - Discontinue above antibiotics tomorrow (high threshold to discontinue antibiotics due to prior c-dif infection) - Supportive treatment with intravenous fluids, duonebs, pain control - Monitor labs (procalcitonin is elevated, suspect bacterial source as well; UA negative; blood culture pending) 3. Lactic acidosis, present on admission. Resolved - Resolved with intravenous fluids Chronic issues known prior to admission, present on admission Rheumatoid arthritis, immunosuppressant, acyclovir for herpetic breakout on immunosuppressant Chronic pain from arthritis with chronic opiate use, oxycodone 30 mg 240 Asthma, Coronary artery disease, Stroke Laparotomy for endometrioma, left knee arthroscopy, hiatal hernia surgery, neck surgery X4, thoracic outlet, patent foramen ovale intraluminal closure CHF Disposition inpatient PCP: Alexandre Espinal Pain Evaluation: Adequate Pain Control GI Prophylaxis: Proton Pump Inhibitor VTE Prophylaxis: Sub-Q Enoxaparin VTE Mechanical Devices: Intermittant Pneumatic CD Attending Statement The patient was seen and examined together with Dr. Ponce on 11/19/16 and I agree with the history, exam and plan as outlined in the note above. Katarina Ponce DO Nov 19, 2016 16:36 Bridger Moran MD Nov 19, 2016 22:07
--- NOTE | 2016-11-19 18:44 | NUR ---
IV/isolation/acyclovir Pt's left forearm IV site painful with flushing this am and appeared to be infiltrated, IV site D/C'd, spoke with IV therapy who were unable to attain IV at first and had to use doppler to place new IV site, IV medications run once IV site available for use without issue. Pt's UA, sputum, and viral PCRs sent to lab. Per lab, still pending rapid strep swab, discussed with and D/C'd as Pt already had a strep urine culturing in lab. Pt's viral PCR came back + for metapneumo and rhino viruses, Pt placed in droplet precautions, made aware. Pt reports that she is currently on 800mg TID acyclovir r/t recent active herpes infection, made aware, acyclovir increased from 400mg TID to 800mg TID.
--- NOTE | 2016-11-19 21:07 | NUR ---
IV Patient put instructional technology coach light at 2100 to report that her IV had "come out." Patient has generally poor options for vascular access and had been advised to be careful of her IV earlier in the day. Charge nurse notified and aware of the situation. Addendum: 11/19/16 at 2321 by CED ELLISON RN Multiple attempts to achieve IV access by charge nurse unsuccessful. Per charge nurse, IV access without doppler and IV therapy assistance will not be possible. Patient's IV fluids and antibiotics will have to be resumed tomorrow when she has viable IV access. Hospitalist paged with
[2016-11-19] MEDS ORDERED: Vancomycin Serum Trough XX ONE (23:30)
[2016-11-20] VITALS (7 sets, daily range): BP systolic 127–149; BP diastolic 78–87; PULSE 78–92; RESP 16–20; O2SAT 93–97
[2016-11-20] MEDS: Sodium Chloride LOK Flush 10 mL Syringe IVFLUSH SCH ×3 (00:30→16:30)
[2016-11-20] MEDS: Aztreonam Inj 500 MG in Dextrose 5% 50 ML IV SCH (02:24)
[2016-11-20] MEDS: Albuterol-Ipratropium 3 mL Inhalation Solution NEB SCH ×2 (02:30→08:30)
[2016-11-20 04:43] LABS: BASOPHILS % (AUTO) 0.2 % (0-3); EOSINOPHILS % (AUTO) 0.9 % (0-5); MONOCYTES % (AUTO) 6.3 % (4-12); Mean Corpuscular Volume 97.9 fL (81-100); NEUTROPHILS % (AUTO) 59.7 % (40-74); Platelet Count 253 bil/L (150-400)
[2016-11-20] MEDS ORDERED: Vancomycin Inj 1,500 MG in 0.9% Sodium Chloride 500 ML IV SCH (08:00)
[2016-11-20] MEDS: Sucralfate 1,000 mg Tablet PO SCH ×4 (09:32→21:37)
[2016-11-20] MEDS: Pantoprazole 40 mg ER24 Tablet PO SCH ×2 (09:34→16:34)
[2016-11-20] MEDS: Fluticasone 0.05% 15 Spray/2 Gm 16 Gm Nasal Spray NASAL SCH ×2 (09:34→21:35)
[2016-11-20] MEDS: Acyclovir 400 mg Tablet PO SCH ×2 (09:34→14:50)
[2016-11-20] MEDS: Fluticasone 100 mCg Inhaler INHALATION SCH ×2 (09:34→21:36)
[2016-11-20] MEDS: 0.9% Sodium Chloride 1,000 ML IV SCH (09:39)
[2016-11-20] MEDS: Vancomycin Dose per Pharmacist XX SCH (09:39)
--- NOTE | 2016-11-20 10:23 | NUR ---
Social Work- Readiness for Discharge Data: EMR reviewed. Pt is on day 2 of hospitalization for pneumonia, sepsis per H&P. Pt is not medically stable for discharge, anticipate 1-2 more days. Pt is on PO abx. SW to fax discharge orders to [facility] at d/c. Pt to discharge home with [facility] caregiver or son to transport via POV. SW will continue to follow. Assessment: Pt who has [facility] assistance. Plan: SW to fax D/C orders to [facility] at discharge. Pt to discharge home with [facility] caregiver or son to transport via POV. SW will continue to follow. ANH Christian
[2016-11-20] MEDS ORDERED: levoFLOXacin 500 mg Tablet PO ONE (11:20)
--- NOTE | 2016-11-20 11:51 | PCM.PNMED ---
Subjective Date of Service Nov 20, 2016 Subjective Continues to have cough and dyspnea but improving. Remains afebrile. IV access lost, tried multiple times but failed. Exam Vital Signs Vital Sign - Last Date Time Temp Pulse Resp B/P Pulse Ox O2 Delivery O2 Flow Rate FiO2 11/20/16 09:07 Supplement Oxygen CPAP/BIPAP 11/20/16 09:07 37.0 83 16 139/81 96 11/19/16 23:10 2.00 11/18/16 16:34 99 Intake and Output 11/19/16 11/19/16 11/20/16 Cumulative From/Thru 15:00 23:00 07:00 11/18/16 12:23 - 11/20/16 06:17 Intake Total 1651 ml 570 ml 5692 ml Output Total 850 ml 1400 ml 2250 ml Balance 801 ml -830 ml 3442 ml Intake Oral 1000 ml 500 ml 1900 ml IV Total 651 ml 70 ml 3792 ml Output Urine Total 850 ml 1400 ml 2250 ml # Voids 4 8 Exam General: Elderly, pleasant woman in no acute distress, well-developed, well- nourished, appropriately interactive HEENT: Normocephalic, atraumatic. Anicteric sclerae, moist conjunctivae, oropharynx free of erythema and cobble stoning with moist mucosa. Neck: Supple. No lymphadenopathy or thyromegaly. Cardiovascular: Regular rate and rhythm, with no murmurs, rubs, or gallops appreciated Pulmonary: Soft bilateral crackles, no wheezes, or rhonchi. Normal respiratory effort with no use of accessory muscles. Abdomen: Bowel tones present. Soft, nontender, nondistended. No hepatosplenomegaly or masses appreciated. Extremities: No clubbing, cyanosis, edema, or lymphadenopathy appreciated. Skin: Normal temperature, turgor, and texture; no rash, ulcers, or subcutaneous nodules appreciated. Neurological: Cranial nerves grossly intact. Psychiatric: Normal mood and affect. Alert and oriented to person, place, and time. IVs and Medications Medications Reviewed: Medications were reviewed in detail Lab and Diagnostics Result Diagram: 11/20/1642411/20/16424 Microbiology Microbiology ADENOVIRUS RESPIRATORY PCR Final 11/19/16-1040 Not Detected CORONOVIRUS 229E Final 11/19/16-1040 Not Detected CORONOVIRUS HKU1 Final 11/19/16-1040 Not Detected CORONOVIRUS NL63 Final 11/19/16-1040 Not Detected CORONOVIRUS OC43 Final 11/19/16-1040 Not Detected INFLUENZA A PCR Final 11/19/16 Not Detected INFLUENZA B PCR Final 11/19/16-1040 Not Detected METAPNEUMOVIRUS PCR Final 11/19/16-1040 Not Detected RHINOVIRUS OR ENTEROVIRUS PCR Final 11/19/16 Organism 1 RHINOVIRUS/ENTEROVIRUS RHINOVIRUS OR ENTEROVIRUS DETECTED TIME CALLED: 1024 DATE CALLED: 11/19/16 FLOOR/DOCTOR: TANA/TOSHA Ball. CALLED BY: VS PARAINFLUENZA 1 PCR Final 11/19/16-1040 Not Detected CONTINUED ON NEXT PAGE RUN DATE: 11/19/16 [facility] LIVE PAGE 2 RUN TIME: 1041 Specimen Inquiry PHYSICIAN Patient: JORDYN APARICIO [id number] (Continued) Specimen: [id number] Collected: 11/19/16 Received: 11/19/16-857 (Continued) Procedure Result Verified Site PARAINFLUENZA 2 PCR Final 11/19/16 Not Detected Microbiology (Continued) PARAINFLUENZA 3 PCR Final 11/19/16 Not Detected PARAINFLUENZA 4 PCR Final 11/19/16 Not Detected RESP SYNCYTIAL VIRUS PCR Final 11/19/16 Not Detected CHLAMDOPHILIA PNEUMONIAE PCR Final 11/19/16 Not Detected MYCOPLASMA PNEUMONIAE PCR Final 11/19/16 MYCO PNEUMONIAE PCR Not Detected Reference Interval Not Detected X-Rays, CTs and MRIs X-RAY CHEST IMPRESSION: Bilateral reticular-nodular infiltrates suggest atypical pneumonia or pulmonary edema. Dictated and approved by: Lexa Turcios M.D. on 11/18/2016 at 12:31 CT ANGIO CHEST PULMONARY EMBOLISM IMPRESSION: 1. No evidence of pulmonary embolism. 2. Patchy right pulmonary air space disease/groundglass opacity is most suggestive of pneumonia. Aspiration or atypical edema may also have this appearance. 3. Lingular nodular structure probably is related to scarring and is located at the location where scarring/atelectais was noted on the prior study. However , on the current study this structure has a more nodular appearance. Subsequently, [address] of the chest is recommended. 4. Mild prominence of the esophageal wall may be related to chronic reflux esophagitis. Please correlate clinically. There is a questionable small hiatal hernia. Dictated and approved by: Marcus Morfin M.D. on 11/18/2016 at 14:13 US VENOUS LEG DUPLEX BILATERAL IMPRESSION: No deep vein thrombosis of the bilateral lower extremities. Dictated and approved by: Conchita Berman M.D. on 11/19/2016 at 8:25 Assessment & Plan Jordyn Chapa is a 61 year old female with COPD, oxygen dependent at home on 2L/CPAP, rheumatoid arthritis, coronary artery disease and stroke in 2007 presented to [facility] with malaise, dyspnea, productive cough and sore throat. Patient admitted for acute on chronic hypoxia due to viral pneumonia. #. Suspected community-acquired pneumonia, present on admission. Active - Chest x-ray suggestive of pneumonia, treated as HCAP on admission with Vancomycin, Levofloxacin, Aztreonam .blood culture negative. Streptococcus pneumonia Ag negative. Leukocytosis improved from 18.6 to 11. Pro-calcitonin trending down from 2.45 to 1.62.Patient nontoxic. Will deescalate to Levaquin by mouth. Patient also has an IV access now. Tried multiple times including feet but failed. - Duonebs / wean O2 back to home nocturnal 2LNC when tolerates -AccuNeb - CPAP at night - Patient's marketing clerk is Dr. Cortes, at [facility] #. Suspected superimposed Viral pneumonia, present on admission. Active - Viral PCR positive for Rhinovirus/Enterovirus - Patient meets SIRS criteria on admission with tachycardia 118 and white blood count of 18.6 - high threshold to discontinue antibiotics due to prior c-dif infection. C. difficile colitis history is remote and happened in 1982. Has been treated with multiple antibiotics recently but no C. difficile. She has an elevated pro -calcitonin. She probably has viral and superimposed bacterial pneumonia - Supportive treatment with intravenous fluids, duonebs, pain control - Monitor labs (procalcitonin is elevated, suspect bacterial source as well; UA negative; blood culture pending) #Chronic COPD and asthma, stable -Patient states she had pulmonary function test and was told that she has both COPD and asthma #. Lactic acidosis, present on admission. 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 She is on acyclovir for prophylaxis. She recently increased dose to therapeutic 800 mg 3 times a day few days ago when she had increased perinasal pain without rash #Rheumatoid arthritis, immunosuppressant, #History of stroke in sitting of patent foramen ovale status post closure -Continue aspirin and Plavix #History of CAD reported by patient -Angiogram reportedly negative in 2013 -Continue aspirin #History of C. difficile colitis in 1982 #History of microscopic colitis, stable #Chronic pain from arthritis with chronic opiate use, oxycodone 30 mg 240 #EMMA on CPAP Disposition : We will keep patient for 1 more day on oral Levaquin. Possible discharge tomorrow on by mouth Levaquin to complete 5-7 days. PCP: Alexandre Espinal GI Prophylaxis: Proton Pump Inhibitor VTE Prophylaxis: Sub-Q Enoxaparin VTE Mechanical Devices: Intermittant Pneumatic CD Bridger Moran MD Nov 20, 2016 11:51
[2016-11-20] MEDS ORDERED: Albuterol-Ipratropium 3 mL Inhalation Solution NEB PRN (13:00)
--- NOTE | 2016-11-20 15:09 | NUR ---
Oxycodone Pt given 6 oxycodone tablets, Pt claims that only 4/6 oxycodone tablets given, all 6 empty packets still in trash, bedding and room searched with charge lpn, no additional tablets found. At the same time, Pt claiming to see bugs in her bed. Addendum: 11/20/16 at 1842 by TOSHA CHILD RN Pt reported pain to be "the best it has been since being in the hospital" when assessed ~1.5 hours after receiving oxycodone dose.
[2016-11-20] MEDS: Acyclovir 800 mg Tablet PO SCH (21:36)
[2016-11-21] MEDS: Sodium Chloride LOK Flush 10 mL Syringe IVFLUSH SCH ×2 (00:13→08:24)
[2016-11-21 03:25] VITALS: BP 123/69; PULSE 83; RESP 18; O2SAT 94
[2016-11-21 04:22] LABS: BASOPHILS % (AUTO) 0.3 % (0-3); EOSINOPHILS % (AUTO) 1.5 % (0-5); Mean Corpuscular Hemoglobin 31.6 pg (27.0-35.0); Mean Corpuscular Volume 97.8 fL (81-100); NEUTROPHILS % (AUTO) 55.4 % (40-74); Platelet Count 298 bil/L (150-400)
--- NOTE | 2016-11-21 05:14 | NUR ---
Pain/Sleep Patient reported 8/10 back and arm pain at start of shift. 30mg oxycodone given. Patient asleep for remainder of night, waking briefly for vitals checks, CPAP adjustments. Continue to monitor.
[2016-11-21] MEDS ORDERED: levoFLOXacin 500 mg Tablet PO SCH (07:30)
[2016-11-21] MEDS: Fluticasone 100 mCg Inhaler INHALATION SCH (08:18)
[2016-11-21] MEDS: Fluticasone 0.05% 15 Spray/2 Gm 16 Gm Nasal Spray NASAL SCH (08:18)
[2016-11-21] MEDS: Acyclovir 800 mg Tablet PO SCH (08:26)
[2016-11-21] MEDS: Pantoprazole 40 mg ER24 Tablet PO SCH (08:26)
[2016-11-21] MEDS: Sucralfate 1,000 mg Tablet PO SCH ×2 (08:26→11:29)
[2016-11-21 08:30] VITALS: BP 113/71; PULSE 81; RESP 20; O2SAT 90
[2016-11-21] MEDS ORDERED: LEVO500T79 PO (11:57)
--- NOTE | 2016-11-21 11:59 | PCM.DIMED ---
Katarina Ponce DO 11/21/16 1136: Discharge Instructions Date of Service Nov 21, 2016 Dates of Hospitalization Nov 18, 2016 at 13:57 Discharge Diagnosis Discharge Diagnosis Suspected community-acquired pneumonia, present on admission. Improved Suspected superimposed Viral pneumonia, present on admission. Improved Lactic acidosis, present on admission. Resolved Rheumatoid arthritis History of stroke in sitting of patent foramen ovale status post closure History of coronary artery disease reported by patient History of Clostridium difficile colitis in 1982 History of microscopic colitis, stable Chronic pain from arthritis with chronic opiate use Obstructive sleep apnea Medication Instructions Continue Levofloxacin, 500 mg daily for two more days Diet Heart Healthy Activity Limited until seen by PCP Call your provider Fever or Chills, Shortness of breath, Bleeding, Chest pain, Vomitting, Excessive diarrhea, Weakness (unilateral) Patient Instructions Follow-up Provider: Alexandre Espinal MD Follow-up with PCP in: 1 week Manuelito Solomon MD 11/21/16 1710: Discharge Instructions Attending's Statement The patient was seen and examined together with Dr. Ponce on 11/21/2016 and I agree with the history, exam and plan as outlined in the note above. . Katarina Ponce DO Nov 21, 2016 11:36 Manuelito Solomon MD Nov 21, 2016 17:10
[2016-11-21 12:13] VITALS: BP 147/88; PULSE 93; RESP 16; O2SAT 94
--- NOTE | 2016-11-21 12:13 | NUR ---
Social Work Note: Discharge Data& Assessment: Per pt is medically ready for discharge. Gris Denise is a 61 year old female admitted on 11/18/2016 for pneumonia and sepsis. Per pt is medically improved and ready to discharge home via POV with P.O antibiotics, resume oxygen use and resume SASHA care giving. Pt ambulating in room independently, at baseline. Pt DC paperwork faxed to [facility]. SW met with pt at bedside to confirm discharge plan and assess for any unmet needs. Pt denies any other needs. Pt family transporting her home this afternoon after she eats her lunch. Pt denies any other needs. No other discharge needs identified. All updated and agreeable to plan. Plan: Per pt is medically improved and ready to discharge home via POV with P.O antibiotics, resume oxygen use and resume SASHA care giving. Pt denies any other needs. No other discharge needs identified. All updated and agreeable to plan. ANH Coleman
--- NOTE | 2016-11-21 13:55 | NUR ---
P: Respiratory Distress I: Pt ambulated in the hallway on room air with sats 90-94%. Taking diet and fluids well. Up in room independently. Voiding qs. No IV access. Discharge instructions given and RX E: Stable S: Alert and oriented. Indicates understanding of discharge instructions and medications. Discharged home with friend.
--- NOTE | 2016-11-21 16:09 | PCM.DC.MED ---
Discharge Summary Date of Service Nov 21, 2016 Dates of Hospitalization Date of Hospital Admission Nov 18, 2016 at 13:57 Date of Discharge: Nov 21, 2016 Providers: Admitting Physician: Bell Zaldivar MD Primary Care Physician: Alexandre Espinal MD Attending Physician: Bell Zaldivar MD Diagnosis at Time of Discharge Diagnosis at Time of Discharge Suspected community-acquired pneumonia, present on admission. Improved Suspected superimposed Viral pneumonia, present on admission. Improved Lactic acidosis, present on admission. Resolved Rheumatoid arthritis History of stroke in sitting of patent foramen ovale status post closure History of coronary artery disease reported by patient History of Clostridium difficile colitis in 1982 History of microscopic colitis, stable Chronic pain from arthritis with chronic opiate use Obstructive sleep apnea Procedures XRay, CTs & MRIs X-RAY CHEST IMPRESSION: Bilateral reticular-nodular infiltrates suggest atypical pneumonia or pulmonary edema. Dictated and approved by: Lexa Turcios M.D. on 11/18/2016 at 12:31 CT ANGIO CHEST PULMONARY EMBOLISM IMPRESSION: 1. No evidence of pulmonary embolism. 2. Patchy right pulmonary air space disease/groundglass opacity is most suggestive of pneumonia. Aspiration or atypical edema may also have this appearance. 3. Lingular nodular structure probably is related to scarring and is located at the location where scarring/atelectais was noted on the prior study. However , on the current study this structure has a more nodular appearance. Subsequently, [address] of the chest is recommended. 4. Mild prominence of the esophageal wall may be related to chronic reflux esophagitis. Please correlate clinically. There is a questionable small hiatal hernia. Dictated and approved by: Marcus Morfin M.D. on 11/18/2016 at 14:13 VENOUS LEG DUPLEX BILATERAL IMPRESSION: No deep vein thrombosis of the bilateral lower extremities. Dictated and approved by: Conchita Berman M.D. on 11/19/2016 at 8:25 Brief History Per Admitting Physician: Bell Zaldivar MD: HISTORY was OBTAINED FROM PATIENT / Node1 NOTES History of present illness 61-year-old female, w/ RA/acyclovir while immunosuppressed, w/ nocturnal home O2 2L/CPAP dependent, presented to ER due to malaise/SOB since Monday morning associated w/ "vomiting" phelgm - green, productive cough, sore throat, presents to ER with fevers 101.5. This morning, pleuritic pain started, located , lower ribs anterior and posterior bilateral. This past year multiple rounds of doxycycline and multiple negative sputum cx, last doxycyline course per her pulmnologist x 10 days less than 1 month ago. Prior quinolone have not helped. typically when she is off doxycycline, symptoms recur. She indicates that this is the 1st time being diagnosed w/ pneumonia. Her automotive accessory installer had ordered outpt CTPE, not yet performed, possibly neighbors are sick contacts. In the ER. Heart rate 118 - 121, afebrile, 148/93, 3 L nasal cannula s/p Doxycyclin clindamycin Rocephin normal saline prednisone ( for iodine allergy) and Benadryl Dilaudid and Zofran, CT-PE negative. Hospital Course Jordyn Chapa is a 61 year old female with COPD, oxygen dependent at home on 2L/CPAP, rheumatoid arthritis, coronary artery disease and stroke in 2007 presented to [facility] with malaise, dyspnea, productive cough and sore throat. Patient admitted for acute on chronic hypoxia due to viral pneumonia. Patient was discharged home on hospital day 3 in a stable condition. 1. Suspected community-acquired pneumonia, present on admission. Improved Chest x-ray suggestive of pneumonia, treated as HCAP on admission with vancomycin, levofloxacin, aztreonam. Blood culture negative. Streptococcus pneumonia Ag negative. Leukocytosis improved. Pro-calcitonin improved. Deescalated to Levaquin by mouth. Continued duonebs and accunebs. Continued CPAP at night. Weaned O2 back to home nocturnal 2LNC upon discharge. Discharged with prescription for levofloxacin, 500 mg by mouth for two more days. 2. Suspected superimposed Viral pneumonia, present on admission. Improved Viral PCR positive for Rhinovirus/Enterovirus. Patient met SIRS criteria on admission. Probable viral pneumonia and superimposed with bacterial pneumonia. Continued supportive treatment with intravenous fluids, duonebs, accunebs, pain control. 3. Chronic COPD and asthma, stable Continued with home medications. 4. Lactic acidosis, present on admission. Resolved Resolved with intravenous fluids. 5. Herpetic breakout, chronic, presumed stable Patient had history of recurrent herpes on the face/nasal area. Continued with acyclovir for prophylaxis. 6. Rheumatoid arthritis 7. History of stroke in sitting of patent foramen ovale status post closure Continued aspirin and plavix 8. History of CAD reported by patient Continued aspirin 9. History of C. difficile colitis in 1982 10. History of microscopic colitis, stable 11. Chronic pain from arthritis with chronic opiate use Continued oxycodone. 12. Obstructive sleep apnea, CPAP dependent, presumed stable Continued CPAP at night Exam Vital Signs (Last) Date Time Temp Pulse Resp B/P Pulse Ox O2 Delivery O2 Flow Rate FiO2 11/21/16 12:13 37.0 93 16 147/88 94 Room Air 11/20/16 21:30 2.00 11/18/16 16:34 99 Exam General: Elderly, pleasant woman in no acute distress, well-developed, well- nourished, appropriately interactive HEENT: Normocephalic, atraumatic. Anicteric sclerae, moist conjunctivae, oropharynx free of erythema and cobble stoning with moist mucosa. Neck: Supple. No lymphadenopathy or thyromegaly. Cardiovascular: Regular rate and rhythm, with no murmurs, rubs, or gallops appreciated Pulmonary: Soft bilateral crackles on the right posterior lung field, no wheezes , or rhonchi. Normal respiratory effort with no use of accessory muscles. Abdomen: Bowel tones present. Soft, nontender, nondistended. No hepatosplenomegaly or masses appreciated. Extremities: No clubbing, cyanosis, edema, or lymphadenopathy appreciated. Skin: Normal temperature, turgor, and texture; no rash, ulcers, or subcutaneous nodules appreciated. Neurological: Cranial nerves grossly intact. Psychiatric: Normal mood and affect. Alert and oriented to person, place, and time. Test 11/18/16 11:59 11/18/16 17:30 11/19/16 00:36 11/19/16 03:35 Prothrombin Time 11.2sec (8.1-12.5) Prothromb Time International Ratio 1.05ratio Activated Partial Thromboplast Time 27.5sec (22.8-33.0) D-Dimer 1.43mg/L FEU (<0.50) Phosphorus Level 1.7mg/dL (2.5-4.9) Troponin T < 0.010ug/L (0.0-0.011) Lactic Acid Level 1.5mmol/L (0.4-2.0) Magnesium Level 2.0mg/dL (1.6-2.6) Test 11/19/16 08:56 11/19/16 09:40 11/20/16 04:25 11/21/16 03:45 Urine Legionella pneumophilia Ag Negative (Negative) Urine Color Straw (YELLOW) Urine Appearance Clear (CLEAR,HAZY) Urine pH 7.0 (5.0-8.0) Urine Specific [place] 1.007 (1.003-1.035) Urine Protein Negativemg/dL (NEG,TRACE) Urine Glucose (UA) Negativemg/dL (NEGATIVE) Urine Ketones Negativemg/dL (NEGATIVE) Urine Occult Blood Negative (NEGATIVE) Urine Nitrite Negative (NEGATIVE) Urine Bilirubin Negative (NEGATIVE) Urine Urobilinogen Normalmg/dL (NORMAL) Urine Leukocyte Esterase Negative (NEGATIVE) Urine RBC 0-2/hpf (0-2) Urine WBC 0-5/hpf (0-5) Urine Epithelial Cells Occasional/hpf (NONE-MOD) Urine Crystals None seen (NONE SEEN) Urine Bacteria None/hpf (NONE-FEW) Urine Hyaline Casts None/lpf (NONE) Urine Granular Casts None seen (NONE SEEN) Urine Waxy Casts None seen (NONE SEEN) Urine Red Blood Cell Casts None seen (NONE SEEN) Urine White Blood Cell Casts None seen (NONE SEEN) Urine Mucus None seen (None Seen) Urine Trichomonas None seen (NONE SEEN) Urine Yeast None (NONE SEEN) Urinalysis Comment None Urine Culture Reflexed Not indicated Sodium Level 140mEq/L (134-144) Potassium Level 3.7mEq/L (3.5-5.2) Chloride Level 102mEq/L (97-108) Carbon Dioxide Level 25mmol/L (18-29) Blood Urea Nitrogen 11mg/dL (8-27) Creatinine 0.74mg/dL (0.57-1.00) Estimat Glomerular Filtration Rate 114mL/min (>59) Glucose Level 95mg/dL (60-99) Calcium Level 8.9mg/dL (8.5-10.1) Total Bilirubin 0.2mg/dL (0.0-1.2) Aspartate Amino Transf (AST/SGOT) 16U/L (0-50) Alanine Aminotransferase (ALT/SGPT) 11U/L (0-32) Alkaline Phosphatase 98U/L (25-165) Total Protein 5.6g/dL (6.4-8.4) Albumin 3.4g/dL (3.4-5.0) White Blood Count 9.1th/mm3 (3.8-10.1) Red Blood Count 3.64mil/mm3 (3.90-5.20) Hemoglobin 11.5g/dL (12.0-15.6) Hematocrit 35.6% (35.0-46.0) Mean Corpuscular Volume 97.8fL (81-100) Mean Corpuscular Hemoglobin 31.6pg (27.0-35.0) Mean Corpuscular Hemoglobin Concent 32.3% (32.0-37.0) Red Cell Distribution Width 13.7% (12.3-15.4) Platelet Count 298bil/L (150-400) Neutrophils (%) (Auto) 55.4% (40-74) Lymphocytes (%) (Auto) 35.4% (14-46) Monocytes (%) (Auto) 7.0% (4-12) Eosinophils (%) (Auto) 1.5% (0-5) Basophils (%) (Auto) 0.3% (0-3) Procalcitonin 0.88ng/mL (0.00-0.08) Microbiology Results Microbiology ADENOVIRUS RESPIRATORY PCR Final 11/19/16-1040 Not Detected CORONOVIRUS 229E Final 11/19/16-1040 Not Detected CORONOVIRUS HKU1 Final 11/19/16-1040 Not Detected CORONOVIRUS NL63 Final 11/19/16-1040 Not Detected CORONOVIRUS OC43 Final 11/19/16-1040 Not Detected INFLUENZA A PCR Final 11/19/16 Not Detected INFLUENZA B PCR Final 11/19/16-1040 Not Detected METAPNEUMOVIRUS PCR Final 11/19/16-1040 Not Detected RHINOVIRUS OR ENTEROVIRUS PCR Final 11/19/16-1040 Organism 1 RHINOVIRUS/ENTEROVIRUS RHINOVIRUS OR ENTEROVIRUS DETECTED TIME CALLED: 1025 DATE CALLED: 11/19/16 FLOOR/DOCTOR: TANA/TOSHA Ball. CALLED BY: VS PARAINFLUENZA 1 PCR Final 11/19/16-1040 Not Detected CONTINUED ON NEXT PAGE RUN DATE: 11/19/16 [facility] LIVE PAGE 2 RUN TIME: 1041 Specimen Inquiry PHYSICIAN Patient: JORDYN APARICIO [id number] (Continued) Specimen: [id number] Collected: 11/19/16 Received: 11/19/16 (Continued) Procedure Result Verified Site PARAINFLUENZA 2 PCR Final 11/19/16 Not Detected Microbiology (Continued) PARAINFLUENZA 3 PCR Final 11/19/16 Not Detected PARAINFLUENZA 4 PCR Final 11/19/16 Not Detected RESP SYNCYTIAL VIRUS PCR Final 04/15/17-1041 Not Detected CHLAMDOPHILIA PNEUMONIAE PCR Final 11/19/16 Not Detected MYCOPLASMA PNEUMONIAE PCR Final 11/19/16 MYCO PNEUMONIAE PCR Not Detected Reference Interval Not Detected Discharge Medications Discharge Medications Acyclovir (Acyclovir) 400 Mg Tablet 400 MG PO TID (Reported) Allopurinol (Allopurinol) 300 Mg Tablet 300 MG PO DAILY (Reported) Amlodipine (Amlodipine) 5 Mg Tablet 2.5 MG PO DAILY (Reported) Aspirin (Aspirin) 81 Mg Tablet.dr 81 MG PO DAILY (Reported) Beclomethasone Dipropionate (Qvar) 8.7 Gm Aer.w.adap 2 PUFF INHALATION BID ( Reported) Bumetanide (Bumetanide) 1 Mg Tablet 1 MG PO BID (Reported) Cholecalciferol (Vitamin D3) (Vitamin D3) 50,000 Unit Capsule 50,000 UNIT PO WEEKLY (Reported) Clonazepam (Klonopin) 1 Mg Tablet 1 MG PO BID (Reported) Clopidogrel Bisulfate (Plavix) 75 Mg Tablet 75 MG PO AM (Reported) Cyclobenzaprine (Cyclobenzaprine) 10 Mg Tablet 20 MG PO HS (Reported) Cyclobenzaprine (Cyclobenzaprine) 10 Mg Tablet 10 MG PO QAM (Reported) Fluticasone Propionate (Fluticasone Propionate Nasal) 16 Gm [place].susp 2 SPRAY NS BID (Reported) Gabapentin (Neurontin) 400 Mg Capsule 800 TAB PO AM (Reported) Gabapentin (Neurontin) 400 Mg Capsule 1,600 TAB PO HS (Reported) Hydroxychloroquine Sulfate (Hydroxychloroquine Sulfate) 200 Mg Tablet 400 MG PO DAILY (Reported) Levofloxacin (Levofloxacin) 500 Mg Tablet 500 MG PO DAILY Prescribed by: SUKHJINDER AGUSTIN DO Loratadine (Claritin) 10 Mg Capsule 10 MG PO QAM (Reported) Magnesium Oxide (Magnesium Oxide) 400 Mg Tablet 400 MG PO BID (Reported) Montelukast (Singulair) 10 Mg Tablet 10 MG PO HS (Reported) Multivitamin (Multivitamins) 1 Each Capsule 1 EACH PO DAILY (Reported) Pantoprazole DR (Protonix) 40 Mg Tablet.dr 40 MG PO BID (Reported) Potassium Chloride ER (Klor-Con M20) 20 Meq Tablet 20 MEQ PO BID (Reported) Sucralfate (Sucralfate) 1 Gm Tablet 1 GM PO QID (Reported) As needed Albuterol HFA (Proair HFA) 8.5 Gm Hfa.aer.ad 2 PUFFS INHALATION Q4H PRN PRN For Shortness of Breath (Reported) Nabumetone (Nabumetone) 500 Mg Tablet 500 MG PO BID PRN PRN For Pain (Reported) Nitroglycerin SL (Nitrostat) 0.4 Mg Tab.subl 0.4 MG SL Q5MIN PRN PRN For Chest Pain (Reported) Ondansetron (Zofran) 8 Mg Tablet 8 MG PO TID PRN PRN For Nausea (Reported) Polyethylene Glycol 3350 (Miralax) 17 Gm Powd.pack 17 GM PO DAILY PRN PRN For Constipation (Reported) oxyCODONE (oxyCODONE) 30 Mg Tablet 1-2 TAB PO Q4H PRN PRN For Pain (Reported) Additional med instructions Continue Levofloxacin, 500 mg daily for two more days Followup Plan Discharge Diet: Heart Healthy Discharge Activity: Limited until seen by PCP Follow-up Provider: Alexandre Espinal MD Follow-up with PCP in: 1 week Time spent Greater than 30 minutes was spent in preparation of discharge with greater than 50% of that time dedicated to patient counseling and coordination of care. . Attending Statement The patient was seen and examined together with Dr. Agustin on 11/21/2016 and I agree with the history, exam and plan as outlined in the note above. . copies to: Alexandre Espinal MD, Oksana S DO Nov 21, 2016 16:09 Manuelito Solomon MD Nov 21, 2016 17:12
== END 2016-11-21 13:15 | disposition home or self-care (01) | DRG 194 ==
LOC: SED 11:51 → PCC 13:57
PROVIDERS: ADMIT Urology; ATTEND Urology
DX: J18.9 Pneumonia, unspecified organism (principal); E87.2 Acidosis; Z99.81 Dependence on supplemental oxygen; B00.9 Herpesviral infection, unspecified; J44.9 Chronic obstructive pulmonary disease, unspecified; J45.909 Unspecified asthma, uncomplicated; M06.9 Rheumatoid arthritis, unspecified; R09.02 Hypoxemia; I25.10 Atherosclerotic heart disease of native coronary artery without angina pectoris; G47.33 Obstructive sleep apnea (adult) (pediatric); Z87.891 Personal history of nicotine dependence; Z86.73 Personal history of transient ischemic attack (TIA), and cerebral infarction without residual deficits; Z79.82 Long term (current) use of aspirin